=== PATIENT | female | born 1985 | race Two or more races ===

== ENCOUNTER 2020-11-25 20:09 | Emergency (ER) | payer OTHER ==
[~2020-11-25] VITALS: Ht 160 cm; Wt 77.1 kg
[2020-11-25] MEDS ORDERED: LORAZEPAM 0.5 MG TABLET PO ONE (20:15)
[2020-11-25] MEDS ORDERED: PROPRANOLOL HCL 10 MG TABLET PO ONE (20:15)
[2020-11-25] MEDS ORDERED: PROPRANOLOL HCL 10 MG TABLET ONE (20:40)
[2020-11-25] MEDS ORDERED: LISI-782 PO (20:48)
[2020-11-25] MEDS ORDERED: PROP10TA10 PO (20:48)
[2020-11-25 21:05] VITALS: BP 130/84
--- NOTE | 2020-11-25 21:05 | NUR ---
Patient discharged to home in stable condition. Written and verbal after care instructions given. Patient verbalizes understanding of instructions. Stressed follow up or return to ER for worsening s/s. Patient out of ER with steady gait, no acute signs of distress, VSS, all belongings taken, to be driven home by aunt via private vehicle.
== END 2020-11-25 21:06 | disposition home or self-care (01) ==
LOC: ER 20:11
DX: F41.0 Panic disorder [episodic paroxysmal anxiety] (principal)
CPT/HCPCS: A4663